=== PATIENT | female | born 1945 | race Hispanic/Latino ===

== ENCOUNTER 2017-12-20 09:51 | Emergency (ER) | payer MEDICARE ==
[2017-12-20] MEDS ORDERED: BROMFED DM COU118 ML PO (09:59)
[2017-12-20] MEDS ORDERED: XYZAL5 MG PO (09:59)
[2017-12-20] MEDS ORDERED: NASONEX17 GM (09:59)
[2017-12-20] MEDS ORDERED: IBUPROFEN400 MG PO (09:59)
[2017-12-20] MEDS ORDERED: CIPRO500 MG PO (10:08)
[2017-12-20] MEDS ORDERED: METFORMIN HCL500 MG PO (10:08)
[2017-12-20 10:20] VITALS: BP 110/60
== END 2017-12-20 10:20 | disposition home or self-care (01) ==
LOC: FSED 09:51
DX: J01.00 Acute maxillary sinusitis, unspecified (principal); J00 Acute nasopharyngitis [common cold]; E11.9 Type 2 diabetes mellitus without complications; I10 Essential (primary) hypertension; B18.2 Chronic viral hepatitis C
CPT/HCPCS: 99283